=== PATIENT | female | born 1955 | race Two or more races ===

== ENCOUNTER 2024-05-29 18:05 | Emergency (ER) | payer MEDICARE, MEDICAID, SELFPAY ==
[2024-05-29 18:21] VITALS: BP 130/82; PULSE 88; RESP 17; TEMP 36.9; O2SAT 95; BMI 29.1
--- NOTE | 2024-05-29 18:31 | EDRME_ITS ---
Rapid Medical Screening Exam E Arrival date/time: 05/29/24 18:05 69-year-old female with past medical history of pulmonary fibrosis presents emergency department complaining of cough and increased shortness of breath for over 1 week. Patient reports was recently diagnosed with pneumonia but symptoms have worse terri. Chief Complaint: Shortness of Breath/Dyspnea Time Seen by Provider: 05/29/24 18:21 Vital signs: Vital Signs Temperature 98.4 F 05/29/24 18:21 Pulse Rate 88 05/29/24 18:21 Respiratory Rate 17 05/29/24 18:21 Blood Pressure 130/82 05/29/24 18:21 Pulse Oximetry (%) 95 05/29/24 18:21 Oxygen Delivery Method Room Air 05/29/24 18:21 Vital signs reviewed by provider: Yes
--- NOTE | 2024-05-29 18:32 | EKG_ITS ---
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
--- NOTE | 2024-05-29 18:32 | XR_ITS ---
Examination: PA lateral chest 2 views Technique: Upright PA lateral chest 2 views Exam date and time: May 29, 2024 1841 hrs. Comparison February 08, 2024 Indications: Chest pain today. Findings: Widespread interstitial disease throughout the lungs Normal heart size Moderate osteopenia Impression: Widespread interstitial disease throughout the lungs most consistent with pneumonia
[2024-05-29 19:06] LABS: Basophils % (Auto) 0 % (0-2.5); Eosinophils % (Auto) 0 % (0-10); Hematocrit 35.7 % (36.0-46.0); Hemoglobin 12.5 g/dL (12.0-16.0); Immature Granulocytes % (Auto) 0 % (0-0); Immature Granulocytes Auto 0.03 Thou/mm3 (0.00-0.00); Lymphocytes # (Auto) 2.4 Thou/mm3 (1.0-4.8); Lymphocytes % (Auto) 32 % (10-50); Mean Corpuscular Hemoglobin 31.1 pg (25.0-35.0); Mean Corpuscular Volume 89 fL (80-100); Monocytes # (Auto) 0.8 Thou/mm3 (0.0-0.8); Monocytes % (Auto) 11 % (0-12); Neutrophils # (Auto) 4.2 Thou/mm3 (1.8-7.7); Neutrophils % (Auto) 56 % (37-80); Nucleated Red Blood Cell % 0 /100 WBC (0); Platelet Count 240 Thou/mm3 (140-440); RDW Standard Deviation 42.8 fL (36.4-46.3); Red Blood Count 4.02 Miln/mm3 (4.00-5.20); White Blood Count 7.6 Thou/mm3 (3.6-11.0)
[2024-05-29 19:21] LABS: B-Type Natriuretic Peptide 32 pg/mL (0-100); INR 0.9 (0.9-1.3); Partial Thromboplastin Time 27.3 Seconds (22.0-36.0); Prothrombin Time 10.3 Seconds (9.0-12.2)
[2024-05-29 19:26] LABS: Alanine Aminotransferase 33 U/L (10-49); Albumin, Serum 4.3 gm/dL (3.4-4.8); Albumin/Globulin Ratio 1.7 (1.2-2.2); Alkaline Phosphatase 95 U/L (46-116); Anion Gap 6 (7-16); Aspartate Amino Transferase 45 U/L (0-34); BUN/Creatinine Ratio 14 Ratio (12-20); Bilirubin,Total 0.5 mg/dL (0.3-1.2); Blood Urea Nitrogen 10 mg/dL (9-23); Calcium 9.7 mg/dL (8.3-10.6); Calcium (Corrected) 9.7 mg/dL (8.5-10.1); Chloride 89 mMol/L (98-107); Creatinine (Component) 0.7 mg/dL (0.6-1.3); Estimated Creatinine Clearance 63.3 mL/min (>60); Globulin 2.5 gm/dL (2.3-3.5); Glucose 98 mg/dL (74-106); Osmolality,Calculated 241 (275-295); Potassium 4.5 mMol/L (3.4-5.1); Sodium 120 mMol/L (136-145); Total Protein 6.8 gm/dL (5.7-8.2); Troponin I < 0.020 ng/mL (0.0-0.045); eGFR > 60 See Note
[2024-05-29 19:36] LABS: Strep A Rapid Negative (Negative)
[2024-05-29 19:52] VITALS: BP 148/79; PULSE 73; RESP 17; TEMP 36.6; O2SAT 95
[2024-05-29 20:08] VITALS: TEMP 37.9
--- NOTE | 2024-05-29 20:30 | EDNOTE_ITS ---
ED General RME/HPI General Chief complaint: Shortness of Breath/Dyspnea Stated complaint: SOB Time Seen by Provider: 05/29/24 18:21 Arrival date/time: 05/29/24 18:05 CC: Cough HPI patient presents the ER after being referred over by the PCP for pneumonia . Patient has extensive history of pulmonary fibrosis, which the patient's family emergency were aware of. There is no fever, the patient has not endured any shortness of breath. During the visit the emergency room vital signs of all remained stable including oxygen saturations greater than 94% on room air. Patient received 3 days continuous of IM Rocephin injections without significant improvement by the PCP including oral cough medicine, and an inhaler. RME / HPI RME / HPI narrative: 05/29/24 18:05 69-year-old female with past medical history of pulmonary fibrosis presents emergency department complaining of cough and increased shortness of breath for over 1 week. Patient reports was recently diagnosed with pneumonia but symptoms have worsened. Related Data Home Medications ?Medication ?Instructions ?Recorded ?Confirmed fluticasone propionate 50 1 spray intranasal QDAY 09/16/22 05/29/24 mcg/actuation nasal spray,suspension Previous Rx's ?Medication ?Instructions ?Recorded dicyclomine 20 mg tablet 20 mg PO TID PRN abdominal pain 07/03/23 #20 tabs prednisone 20 mg tablet See Taper PO BID 3 days #6 tabs 05/29/24 Allergies Allergy/AdvReac Type Severity Reaction Status Date / Time codeine Allergy Intermediate Nausea Verified 04/29/23 17:22 hydrocodone Allergy Intermediate GI UPSET Verified 04/29/23 17:22 Review of Systems Review of Systems Narrative Review of Systems: GEN: No fever, no chills, no weight loss EYES: No discharge, no visual changes, no pain HEENT: No ear pain, no congestion, no sore throat PULM: No shortness of breath, + cough, no congestion CV: No chest pain, no dyspnea on exertion, no palpitations GI: No nausea, no vomiting, no diarrhea, no pain, no constipation : No frequency, no urgency, no dysuria MUSC/SKEL: No joint pain, no back pain SKIN: No rash PSYCH: No hallucinations, no depression HEME/LYMPH: No easy bleeding or bruising tendencies NEURO: No weakness, no headache Past Medical History Past Medical History NEUROLOGIC: Positive Neurological Disorders and Transient Ischemic Attacks (TIA); Negative Cerebrovascular Accident or Seizures CARDIAC: Negative Cardiac Disorders or Congestive Heart Failure RESPIRATORY: Positive Pneumonia and Pulmonary Fibrosis; Negative Chronic Obstructive Pulmonary Disease (COPD), Asthma, Emphysema or Tuberculosis GASTROINTESTINAL: Negative Gastrointestinal Disorders GENITOURINARY: Negative Genitourinary Disorders or Renal Disease REPRODUCTIVE: Negative Pelvic Inflammatory Disease MUSCULOSKELETAL: Positive Musculoskeletal Disorders and Arthritis ENDOCRINE: Negative Endocrine Disorders, Diabetes Mellitus Type 1 or Diabetes Mellitus Type 2 HEMATOLOGIC: Negative Blood Disorders or Sickle Cell Disease PSYCHO/SOCIAL: Positive Anxiety; Negative Depression OTHER HISTORY: Negative Autoimmune Disease, Blood Transfusions, Anesthesia Reactions, Organ Transplant or Cancer Surgical History SURGICAL: Positive Oral Surgery and Abdominal Surgery; Negative Cardiac Surgery or Organ Transplant Social History SMOKING STATUS: Never smoker SUBSTANCE USE: does not use ED Exam Narrative Physical exam: [General: Not in any acute distress Head normocephalic HEENT: Within acceptable limits Neck is supple nontender Chest equal chest rise nontender to palpation Respiratory: Clear to auscultation no wheezes crackles or rubs CV: Rate rhythm is regular no murmurs rubs or clicks Abdomen is soft nontender no masses positive bowel sounds all 4 quadrants Back: No CVA tenderness no spinous process tenderness from cervical spine thoracic and lumbar spine Skin: Intact no petechiae rash induration ulceration or crepitus Extremities: Moving all extremity against resistance cap refill less than 2 seconds neurosensory intact Neuro: Awake alert oriented x3 Glascow coma 15 no focal deficits] Course Quality Measures none Orders Category Date Time Status Bedside Influenza A&B Antigen Test NOW Care 05/29/24 18:32 Completed EKG (ED ONLY) *Do not use* NOW Care 05/29/24 18:32 Completed EKG (ED Only) Stat Exams 05/29/24 18:32 Draft XR chest 2V Stat Exams 05/29/24 18:32 Completed BNP [B-Type Natriuretic Peptide] Stat Lab 05/29/24 18:46 Completed CBC Stat Lab 05/29/24 18:46 Completed Comprehensive Metabolic Panel Stat Lab 05/29/24 18:46 Completed PT [Prothrombin Time with INR] Stat Lab 05/29/24 18:46 Completed PTT [Partial Thromboplastin Time] Stat Lab 05/29/24 18:46 Completed Strep A Rapid Stat Lab 05/29/24 19:00 Completed Troponin I Stat Lab 05/29/24 18:46 Completed Vital Signs Vital signs: Vital Signs Temperature 98.4 F 05/29/24 18:21 Pulse Rate 88 05/29/24 18:21 Respiratory Rate 17 05/29/24 18:21 Blood Pressure 130/82 05/29/24 18:21 Pulse Oximetry (%) 95 05/29/24 18:21 Oxygen Delivery Method Room Air 05/29/24 18:21 [facility] Patient data External records reviewed:: [facility] previous records Clinical information provided by:: patient and family Social determinants that could affect healthcare access:: none Patient has the following chronic illnesses:: Pulmonary fibrosis TIA How is presenting disease/condition affected by chronic disease/condition?: e xacerbated by Evaluation data The following diagnostics were reviewed and interpreted by me:: lab results, radiology exam(s) and EKG tracing(s) Lab and/or radiology exams considered but not ordered:: CBC shows no acute leukocytosis anemia thrombocytopenia. Coags within acceptable limits CMP shows a sodium 120 potassium of 4.5 chloride of 120 CO2 of 25.0 BUN of 10 creatinine of 2.7 glucose of 98. No transaminitis or T. bili elevation Troponin is negative BNP is negative Strep is negative Chest x-ray interpreted by me shows pulmonary fibrosis there is a question of infiltrate per the radiologist however when compared to the old EKGs for the last 3 images show that all is consistent with pulmonary fibrosis. No focal consolidated infiltrate. Interpretation Summary: The patient has no pneumonic signs such as tachypnea tachycardia fever or productive wet cough shortness of breath difficulty breathing. X-ray is subjective as the patient has significant pulmonary fibrosis, the patient is comfortable with normal oxygen saturations and stable vital signs at this time I am not overly impressed that this is an pneumonia. The patient received 3 days of Rocephin injections without significant improvement I suspect this is pulmonary fibrosis with may be an inflammatory flare. Patient will be put on steroids at home the daughter was advised to watch the patient for 2 days if there is worsening of symptoms return the emergency room otherwise follow-up with her primary care provider. Medications Medications considered but not ordered:: None Medication administrations:: None Consultations Consultation(s) initiated? (list below): No Diagnosis Differential Diagnosis ED Complaint MDM: Pneumonia sepsis pulmonary fibrosis Most likely diagnosis given after review of the tests above:: Pulmonary fibrosis cough Admission Indicated Admission indicated?: not indicated Explain why admission is indicated or not indicated:: Stable for outpatient follow-up Admission Request Was there a request for admission?: No Disposition Plan Disposition Plan: Discharge Discharge Attestation Discharge Attestation: The patient and all family members were given an opportunity to ask questions and understood the discharge instructions. Discharge instructions specifically effects, indications for sooner follow up or return to the emergency department, and the expected course of current diagnosis. Patient condition: Stable Medical Decision Making Differential Diagnosis Differential Diagnosis: Pneumonia sepsis pulmonary fibrosis Lab Data 05/29/24 18:46 05/29/24 18:46 Labs: Lab Results 05/29/24 05/29/24 Range/Units 18:46 19:00 WBC 7.6 (3.6-11.0) Thou/mm3 RBC 4.02 (4.00-5.20) Miln/mm3 Hgb 12.5 (12.0-16.0) g/dL Hct 35.7 L (36.0-46.0) % MCV 89 (80-100) fL MCH 31.1 (25.0-35.0) pg MCHC 35.0 (31.0-37.0) g/dl RDW Std Deviation 42.8 (36.4-46.3) fL Plt Count 240 (140-440) Thou/mm3 Neut % (Auto) 56 (37-80) % Lymph % (Auto) 32 (10-50) % [place] % (Auto) 11 (0-12) % Eos % (Auto) 0 (0-10) % Baso % (Auto) 0 (0-2.5) % Neut # (Auto) 4.2 (1.8-7.7) Thou/mm3 Lymph # (Auto) 2.4 (1.0-4.8) Thou/mm3 [place] # (Auto) 0.8 (0.0-0.8) Thou/mm3 Eos # (Auto) 0.0 (0.0-0.5) Thou/mm3 Baso # (Auto) 0.0 (0.0-0.2) Thou/mm3 Immature Gran # (Auto) 0.03 H (0.00-0.00) Thou/mm3 Absolute Nucleated RBC 0.00 (0.00-0.00) Thou/mm3 Immature Gran % 0 (0-0) % Nucleated RBC % 0 (0) /100 WBC PT 10.3 (9.0-12.2) Seconds INR 0.9 (0.9-1.3) APTT 27.3 (22.0-36.0) Seconds Sodium 120 L (136-145) mMol/L Potassium 4.5 (3.4-5.1) mMol/L Chloride 89 L (98-107) mMol/L Carbon Dioxide 25.0 (20.0-31.0) mMol/L Anion Gap 6 L (7-16) BUN 10 (9-23) mg/dL Creatinine 0.7 (0.6-1.3) mg/dL Estim Creat Clear Calc 63.3 (>60) mL/min eGFR > 60 (60 - ) See Note BUN/Creatinine Ratio 14 (12-20) Ratio Glucose 98 (74-106) mg/dL Calculated Osmolality 241 L (275-295) Calcium 9.7 (8.3-10.6) mg/dL Corrected Calcium 9.7 (8.5-10.1) mg/dL Total Bilirubin 0.5 (0.3-1.2) mg/dL AST 45 H (0-34) U/L ALT 33 (10-49) U/L Alkaline Phosphatase 95 (46-116) U/L Troponin I < 0.020 (0.0-0.045) ng/mL B-Natriuretic Peptide 32 (0-100) pg/mL Total Protein 6.8 (5.7-8.2) gm/dL Albumin 4.3 (3.4-4.8) gm/dL Globulin 2.5 (2.3-3.5) gm/dL Albumin/Globulin Ratio 1.7 (1.2-2.2) Group A Strep Rapid Negative (Negative) Discharge Plan Plan Patient Disposition: HOME (Self Care) Patient condition on transfer: Stable Prescriptions/Referrals Prescriptions/Med Rec: New prednisone 20 mg tablet See Taper PO BID 3 Days Qty: 6 0RF Taper: Prednisone Taper 20 mg DAILY for 2 Days and 0 Hour 10 mg DAILY for 2 Days and 0 Hour 5 mg DAILY for 7 Days and 0 Hour No Action dicyclomine 20 mg tablet 20 mg PO TID PRN (Reason: abdominal pain) Qty: 20 0RF fluticasone propionate 50 mcg/actuation [place],Suspension 1 spray INTRANASAL QDAY Rx Instructions: administer into each nostril Problem List Clinical Impression: Cough Patient/Caregiver Discharge Instructions Education Materials: ED Cough Chronic Uncertain Cause Adult Print Language: Ivorian Stand Alone Forms: [facility]quel Award Info., Patient Portal Info Letter PA/CERTIFIED ALCOHOL COUNSELOR Supervising Physician PA/CERTIFIED ALCOHOL COUNSELOR Supervising Physician: Yonis Ochoa ENP
[2024-05-29 20:42] VITALS: BP 144/80; PULSE 75; RESP 20; O2SAT 94
== END 2024-05-29 20:56 | disposition home or self-care (01) ==
LOC: SERX 20:43
PROVIDERS: Emergency Provider Emergency Medicine; PCP Registered Nurse Community Health
DX: R05.9 Cough, unspecified (principal); J84.10 Pulmonary fibrosis, unspecified
CPT/HCPCS: 36415; 71046; 80053; 83880; 84484; 85025; 85610; 85730; 87400; 87651; 87811; 93005; 99283

== ENCOUNTER → 2024-08-01 | Outpatient (CLI) | payer MEDICARE, MEDICAID, SELFPAY ==
--- NOTE | 2024-08-01 14:45 | XR_ITS ---
Examination: Bone densitometry Date and time of exam:August 01, 2024 1452 hrs. Indications: Menopause age 36 Technique: Lumbar spine and hip total bone mineralization values of an calculated. Peak reference and age match control results have been displayed. Findings: Lumbar spine total bone mineralization is1.198 gm/cm2. This is 1.4 standard deviations above peak reference. This is 3.6 standard deviations above age-matched controls. Hip total bone mineralization is 0.835 gm/cm2 This is 0.9 standard deviations below peak reference. This is 0.6 standard deviations above age-matched controls Impression: There is normal mineralization based on lumbar spine measurements. There is osteopenia based on hip measurements Lumbar mineralization is increased 1.2% compared with January 22 2021 Hip mineralization is decreased 1.9% compared with the January 22 2021
== END | disposition home or self-care (01) ==
LOC: CDIM 14:23
PROVIDERS: Referring Provider Registered Nurse Community Health; Visit Provider Registered Nurse Community Health
DX: Z13.820 Encounter for screening for osteoporosis (principal); M85.88 Other specified disorders of bone density and structure, other site
CPT/HCPCS: 77080

== ENCOUNTER 2024-10-09 13:40 | Emergency (ER) | payer MEDICARE, MEDICAID, SELFPAY ==
[2024-10-09 13:41] VITALS: BMI 29.9
[2024-10-09 13:45] VITALS: BP 121/70; PULSE 73; RESP 20; TEMP 36.6; O2SAT 96
--- NOTE | 2024-10-09 14:04 | XR_ITS ---
Examination: Duplex scan of the lower extremity, unilateral right complete Date and time of exam: October 09, 2024 1520 hours INDICATIONS: Right leg numbness today Technique: Duplex scan of the extremity veins using B-mode/grayscale imaging and Doppler spectral analysis and color flow Attention is directed to internal echogenicity, compression and augmentation involving these veins, color flow assessment, spectral analysis Findings: Major deep venous structures in the extremity demonstrate normal course and caliber. There is no evidence of deep vein thrombosis. Normal color flow and spectral analysis Impression: Negative for DVT..
--- NOTE | 2024-10-09 14:05 | PD.EDRME ---
Rapid Medical Screening Exam RME Arrival date/time: 10/09/24 13:40 69-year-old female with no known medical history presents to the emergency room with a chief complaint of numbness to the right lower extremity x 3 days I have greeted and performed a focused initial assessment of this patient. A comprehensive ED assessment and evaluation of the patient, analysis of all test results, and completion of the medical decision making process will be conducted by additional ED providers. Chief Complaint: Extremity Injury, Lower Time Seen by Provider: 10/09/24 13:51 Vital signs: Vital Signs Temperature 97.9 F 10/09/24 13:45 Pulse Rate 73 10/09/24 13:45 Respiratory Rate 20 10/09/24 13:45 Blood Pressure 121/70 10/09/24 13:45 Pulse Oximetry (%) 96 10/09/24 13:45 Oxygen Delivery Method Room Air 10/09/24 13:45 Vital signs reviewed by provider: Yes
[2024-10-09 14:23] LABS: Basophils % (Auto) 0 % (0-2.5); Eosinophils # (Auto) 0.1 Thou/mm3 (0.0-0.5); Eosinophils % (Auto) 1 % (0-10); Hematocrit 35.3 % (36.0-46.0); Hemoglobin 12.1 g/dL (12.0-16.0); Immature Granulocytes % (Auto) 1 % (0-0); Immature Granulocytes Auto 0.05 Thou/mm3 (0.00-0.00); Lymphocytes # (Auto) 2.2 Thou/mm3 (1.0-4.8); Lymphocytes % (Auto) 27 % (10-50); Mean Corpuscular HGB Conc 34.3 g/dl (31.0-37.0); Mean Corpuscular Hemoglobin 30.9 pg (25.0-35.0); Mean Corpuscular Volume 90 fL (80-100); Monocytes # (Auto) 0.7 Thou/mm3 (0.0-0.8); Monocytes % (Auto) 8 % (0-12); Neutrophils # (Auto) 5.3 Thou/mm3 (1.8-7.7); Neutrophils % (Auto) 63 % (37-80); Nucleated Red Blood Cell % 0 /100 WBC (0); Platelet Count 223 Thou/mm3 (140-440); RDW Standard Deviation 45.6 fL (36.4-46.3); Red Blood Count 3.92 Miln/mm3 (4.00-5.20); White Blood Count 8.3 Thou/mm3 (3.6-11.0)
[2024-10-09 14:40] LABS: Collection Type, Urine Clean Catch
[2024-10-09 14:41] LABS: Alanine Aminotransferase 22 U/L (10-49); Albumin/Globulin Ratio 1.8 (1.2-2.2); Alkaline Phosphatase 69 U/L (46-116); Anion Gap 7 (7-16); Aspartate Amino Transferase 21 U/L (0-34); BUN/Creatinine Ratio 20 Ratio (12-20); Bilirubin,Total 0.3 mg/dL (0.3-1.2); Blood Urea Nitrogen 20 mg/dL (9-23); Carbon Dioxide 23.8 mMol/L (20.0-31.0); Chloride 96 mMol/L (98-107); Estimated Creatinine Clearance 44.9 mL/min (>60); Globulin 2.2 gm/dL (2.3-3.5); Glucose 93 mg/dL (74-106); Osmolality,Calculated 257 (275-295); Potassium 4.3 mMol/L (3.4-5.1); Sodium 127 mMol/L (136-145); Total Protein 6.2 gm/dL (5.7-8.2); eGFR > 60 See Note
[2024-10-09 14:45] LABS: Bilirubin,Urine Negative (Negative); Blood,Urine Negative (Negative); Clarity,Urine Clear (Clear/Hazy); Color,Urine Yellow (Lt Yel-Yel); Culture Indicated,Urine Not Indicated; Glucose, Urine Negative (Negative); Hyaline Casts,Urine < 1 /hpf (0-1); Ketones,Urine Negative (Negative); Leukocyte Esterase,Urine Positive (Negative); Nitrite,Urine Negative (Negative); PH,Urine 6.5 (5.0-7.0); Protein,Urine Negative (Neg - Trace); RBC,Urine 2 /hpf (0-3); Specific Gravity,Urine 1.021 (1.001-1.035); Squamous Epithelial Cell,Urine 2 /hpf (0-5); Urobilinogen,Urine Negative mg/dL (0.0-1.0); WBC,Urine 2 /hpf (0-5)
[2024-10-09 15:09] LABS: INR 0.9 (0.9-1.3); Partial Thromboplastin Time 22.8 Seconds (22.0-36.0); Prothrombin Time 10.1 Seconds (9.0-12.2)
[2024-10-09 17:10] VITALS: BP 139/78; PULSE 61; RESP 17; TEMP 36.5; O2SAT 97
--- NOTE | 2024-10-09 20:52 | EDNOTE_ITS ---
ED General RME/HPI General Chief complaint: Extremity Injury, Lower Stated complaint: MY R LEGS FEELS ASLEEP X1 DAY Time Seen by Provider: 10/09/24 13:51 Arrival date/time: 10/09/24 13:40 CC: Right lower leg numbness HPI onset Wednesday morning when she woke up however cannot say whether it was there Wednesday night. No prior history of similar events isolated to the right lower leg only. Patient send since then it has started to resolve. Patient denies fever chills numbness weakness in any other extremities balance issue blurred vision seeing spots headache or numbness or weakness in the upper extremities. RME / HPI RME / HPI narrative: 10/09/24 13:40 69-year-old female with no known medical history presents to the emergency room with a chief complaint of numbness to the right lower extremity x 3 days I have greeted and performed a focused initial assessment of this patient. A comprehensive ED assessment and evaluation of the patient, analysis of all test results, and completion of the medical decision making process will be conducted by additional ED providers. Related Data Home Medications ?Medication ?Instructions ?Recorded ?Confirmed fluticasone propionate 50 1 spray intranasal QDAY 08/2305/29/24 mcg/actuation nasal spray,suspension Previous Rx's ?Medication ?Instructions ?Recorded dicyclomine 20 mg tablet 20 mg PO TID PRN abdominal p ain 07/03/23 #20 tabs Allergies Allergy/AdvReac Type Severity Reaction Status Date / Time codeine Allergy Intermediate Nausea Verified 10/09/24 13:44 hydrocodone Allergy Intermediate GI UPSET Verified 10/09/24 13:44 Review of Systems Review of Systems Narrative Review of Systems: GEN: No fever, no chills, no weight loss EYES: No discharge, no visual changes, no pain HEENT: No ear pain, no congestion, no sore throat PULM: No shortness of breath, no cough, no congestion CV: No chest pain, no dyspnea on exertion, no palpitations GI: No nausea, no vomiting, no diarrhea, no pain, no constipation : No frequency, no urgency, no dysuria MUSC/SKEL: No joint pain, no back pain SKIN: No rash PSYCH: No hallucinations, no depression HEME/LYMPH: No easy bleeding or bruising tendencies NEURO: No weakness, no headache Past Medical History Past Medical History NEUROLOGIC: Positive Neurological Disorders and Transient Ischemic Attacks (TIA); Negative Cerebrovascular Accident or Seizures CARDIAC: Negative Cardiac Disorders or Congestive Heart Failure RESPIRATORY: Positive Pneumonia and Pulmonary Fibrosis; Negative Chronic Obstructive Pulmonary Disease (COPD), Asthma, Emphysema or Tuberculosis GASTROINTESTINAL: Negative Gastrointestinal Disorders GENITOURINARY: Negative Genitourinary Disorders or Renal Disease REPRODUCTIVE: Negative Pelvic Inflammatory Disease MUSCULOSKELETAL: Positive Musculoskeletal Disorders and Arthritis ENDOCRINE: Negative Endocrine Disorders, Diabetes Mellitus Type 1 or Diabetes Mellitus Type 2 HEMATOLOGIC: Negative Blood Disorders or Sickle Cell Disease PSYCHO/SOCIAL: Positive Anxiety; Negative Depression OTHER HISTORY: Negative Autoimmune Disease, Blood Transfusions, Anesthesia Reactions, Organ Transplant or Cancer Surgical History SURGICAL: Positive Oral Surgery and Abdominal Surgery; Negative Cardiac Surgery or Organ Transplant Social History SMOKING STATUS: Never smoker SUBSTANCE USE: does not use ED Exam Narrative Physical exam: [General: Obese not in any acute distress Head normocephalic HEENT: Within acceptable limits Neck is supple nontender Chest equal chest rise nontender to palpation Respiratory: Clear to auscultation no wheezes crackles or rubs CV: Rate rhythm is regular no murmurs rubs or clicks Abdomen is distended secondary to body habitus soft nontender no masses positive bowel sounds all 4 quadrants Back: No CVA tenderness no spinous process tenderness from cervical spine thoracic and lumbar spine Skin: Intact no petechiae rash induration ulceration or crepitus Extremities: Moving right lower extremity against resistance cap refill less than 2 seconds. Sensory intact. No edema nontender to palpation. Moving all other extremities against resistance cap refill less than 2 seconds neurosensory intact Neuro: Awake alert oriented x3 Glascow coma 15 no focal deficits] Course Course Course Narrative: Patient has resolution of symptoms as no generalized weaknesses and no other focal deficits at this time I have low index of suspicion that this is a stroke, we will discharge the patient home to follow-up with primary care provider. Quality Measures none Orders Category Date Time Status US venous doppler LE RT Stat Exams 10/09/24 14:04 Completed CBC Stat Lab 10/09/24 14:09 Completed CMP [Comprehensive Metabolic Panel] Stat Lab 10/09/24 14:09 Completed PT [Prothrombin Time with INR] Stat Lab 10/09/24 14:09 Completed PTT [Partial Thromboplastin Time] Stat Lab 10/09/24 14:09 Completed UA, C/S IF [Urinalysis, C/S if Indicated] Stat Lab 10/09/24 14:31 Completed Vital Signs Vital signs: Vital Signs Temperature 97.9 F 10/09/24 13:45 Pulse Rate 73 10/09/24 13:45 Respiratory Rate 20 10/09/24 13:45 Blood Pressure 121/70 10/09/24 13:45 Pulse Oximetry (%) 96 10/09/24 13:45 Oxygen Delivery Method Room Air 10/09/24 13:45 Discharge Plan Plan Patient Disposition: HOME (Self Care) Patient condition on transfer: Stable Prescriptions/Referrals Prescriptions/Med Rec: No Action dicyclomine 20 mg tablet 20 mg PO TID PRN (Reason: abdominal pain) Qty: 20 0RF fluticasone propionate 50 mcg/actuation [place],Suspension 1 spray INTRANASAL QDAY Rx Instructions: administer into each nostril Referrals: Eileen Zelaya, PASTE MIXING SUPERVISOR [Primary Care Provider] - In 1 week Problem List Clinical Impression: Lower extremity numbness Patient/Caregiver Discharge Instructions Education Materials: ED Paraesthesias Print Language: Sammarinese Stand Alone Forms: [facility]quel Award Info., Patient Portal Info Letter PA/PASTE MIXING SUPERVISOR Supervising Physician PA/PASTE MIXING SUPERVISOR Supervising Physician: Yonis Ochoa ENP [facility] Clinical Information Provided by: patient and family Medical Records reviewed [facility] Meds/Rx considered, not ordered None Labs/Rad/Tests considered, not ordered None EKG EKG not done Labs Lab(s) Interpretation(s): CBC shows no acute leukocytosis significant anemia, platelets of 223 Coags within acceptable limits Sodium is low at 127 chloride at 96 no other electrolyte imbalances no renal impairment transaminitis or T. bili elevation. Note: Her sodium has been as low as 120. Patient is aware Urine is negative for acute urinary tract infection. Imaging Imaging interpretation: interpreted by [facility] Interpretation(s): Ultrasound right lower extremity is negative for DVT
[2024-10-09 21:04] VITALS: RESP 16
== END 2024-10-09 21:05 | disposition home or self-care (01) ==
PROVIDERS: Nurse Practitioner Family; Emergency Provider Emergency Medicine; PCP Registered Nurse Community Health
DX: R20.0 Anesthesia of skin (principal)
CPT/HCPCS: 36415; 80053; 81001; 85025; 85610; 85730; 93971; 99284

== ENCOUNTER 2024-10-23 19:54 | Emergency (ER) | payer MEDICARE, MEDICAID, SELFPAY ==
--- NOTE | 2024-10-23 19:57 | EKG_ITS ---
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
[2024-10-23 20:09] VITALS: BP 170/69; PULSE 77; RESP 20; TEMP 36.4; O2SAT 94
--- NOTE | 2024-10-23 21:01 | PD.EDRME ---
Rapid Medical Screening Exam RME Arrival date/time: 10/23/24 19:54 Chief Complaint: Shortness of Breath/Dyspnea Time Seen by Provider: 10/23/24 20:47 Vital signs: Vital Signs Temperature 97.5 F 10/23/24 20:09 Pulse Rate 77 10/23/24 20:09 Respiratory Rate 20 10/23/24 20:09 Blood Pressure 170/69 H 10/23/24 20:09 Pulse Oximetry (%) 94 L 10/23/24 20:09 Oxygen Delivery Method Room Air 10/23/24 20:09 Pulse ox is 94% room air. Vital signs reviewed by provider: Yes RME Narrative: Patient is a 69-year-old woman who has pulmonary fibrosis with difficulty breathing and chest pain as well as chest pressure that has been intermittent for the last 2 years.
--- NOTE | 2024-10-23 21:06 | XR_ITS ---
Examination: PA lateral chest 2 views TECHNIQUE: Upright PA lateral chest 2 views Date and time: October 23, 2024 2147 hours Comparison May 29, 2024 INDICATIONS: Shortness of breath today. FINDINGS: Again noted abnormal interstitial disease throughout the lungs, please see the CT chest report 02/12/2023 indicating mild to moderate pulmonary fibrosis No bobby pneumonia Normal heart size Moderate osteopenia IMPRESSION: Moderate bilateral pulmonary fibrosis
[2024-10-23 22:15] LABS: Basophils % (Auto) 0 % (0-2.5); Eosinophils % (Auto) 0 % (0-10); Hematocrit 33.7 % (36.0-46.0); Hemoglobin 12.3 g/dL (12.0-16.0); Immature Granulocytes % (Auto) 0 % (0-0); Immature Granulocytes Auto 0.02 Thou/mm3 (0.00-0.00); Lymphocytes # (Auto) 1.4 Thou/mm3 (1.0-4.8); Lymphocytes % (Auto) 18 % (10-50); Mean Corpuscular HGB Conc 36.5 g/dl (31.0-37.0); Mean Corpuscular Hemoglobin 31.1 pg (25.0-35.0); Mean Corpuscular Volume 85 fL (80-100); Monocytes # (Auto) 0.2 Thou/mm3 (0.0-0.8); Monocytes % (Auto) 3 % (0-12); Neutrophils % (Auto) 78 % (37-80); Nucleated Red Blood Cell % 0 /100 WBC (0); Platelet Count 305 Thou/mm3 (140-440); RDW Standard Deviation 42.2 fL (36.4-46.3); Red Blood Count 3.96 Miln/mm3 (4.00-5.20); White Blood Count 7.6 Thou/mm3 (3.6-11.0)
[2024-10-23 22:33] LABS: B-Type Natriuretic Peptide 47 pg/mL (0-100)
[2024-10-23 22:36] LABS: Alanine Aminotransferase 31 U/L (10-49); Albumin, Serum 4.3 gm/dL (3.4-4.8); Alkaline Phosphatase 79 U/L (46-116); Anion Gap 9 (7-16); Aspartate Amino Transferase 40 U/L (0-34); BUN/Creatinine Ratio 21 Ratio (12-20); Bilirubin,Total 0.5 mg/dL (0.3-1.2); Blood Urea Nitrogen 17 mg/dL (9-23); Calcium 8.7 mg/dL (8.3-10.6); Calcium (Corrected) 8.7 mg/dL (8.5-10.1); Carbon Dioxide 23.5 mMol/L (20.0-31.0); Chloride 92 mMol/L (98-107); Creatinine (Component) 0.8 mg/dL (0.6-1.3); Globulin 2.2 gm/dL (2.3-3.5); Glucose 165 mg/dL (74-106); Osmolality,Calculated 255 (275-295); Potassium 4.1 mMol/L (3.4-5.1); Sodium 124 mMol/L (136-145); Total Protein 6.5 gm/dL (5.7-8.2); Troponin I < 0.002 ng/mL (0.0-0.045); eGFR > 60 See Note
--- NOTE | 2024-10-24 00:28 | PD.EDSOB ---
ED SOB =RME/HPI General Chief Complaint: Shortness of Breath/Dyspnea Stated Complaint: DIFF BREATHING,COUGH Time Seen by Provider: 10/23/24 20:47 Arrival date/time: 10/23/24 19:54 RME / HPI RME / HPI Narrative: Patient is a 69-year-old woman who has pulmonary fibrosis with difficulty breathing and chest pain as well as chest pressure that has been intermittent for the last 2 years. --------- Dr. Winn?s Main ED Evaluation: 69yo female with a history of pulmonary fibrosis BIB her daughter presents to the ED for a chief complaint of chest pain x today. Daughter states the patient has had a cough and sore throat for the last 1 week, reporting she developed chest pain and worsening chronic shortness of breath today. Patient denies any N/V, sweating or any other associated symptoms. Related Data Home Medications ?Medication ?Instructions ?Recorded ?Confirmed fluticasone propionate 50 1 spray intranasal QDAY 09/16/22 05/29/24 mcg/actuation nasal spray,suspension Previous Rx's ?Medication ?Instructions ?Recorded dicyclomine 20 mg tablet 20 mg PO TID PRN abdominal pain 07/03/23 #20 tabs Allergies Allergy/AdvReac Type Severity Reaction Status Date / Time codeine Allergy Intermediate Nausea Verified 10/09/24 13:44 hydrocodone Allergy Intermediate GI UPSET Verified 10/09/24 13:44 Review of Systems Review of Systems Systems Reviewed: All systems reviewed, normal except as documented Past Medical History Past Medical History NEUROLOGIC: Positive Neurological Disorders and Transient Ischemic Attacks (TIA); Negative Cerebrovascular Accident or Seizures CARDIAC: Negative Cardiac Disorders or Congestive Heart Failure RESPIRATORY: Positive Pneumonia and Pulmonary Fibrosis; Negative Chronic Obstructive Pulmonary Disease (COPD), Asthma, Emphysema or Tuberculosis GASTROINTESTINAL: Negative Gastrointestinal Disorders GENITOURINARY: Negative Genitourinary Disorders or Renal Disease REPRODUCTIVE: Negative Pelvic Inflammatory Disease MUSCULOSKELETAL: Positive Musculoskeletal Disorders and Arthritis ENDOCRINE: Negative Endocrine Disorders, Diabetes Mellitus Type 1 or Diabetes Mellitus Type 2 HEMATOLOGIC: Negative Blood Disorders or Sickle Cell Disease PSYCHO/SOCIAL: Positive Anxiety; Negative Depression OTHER HISTORY: Negative Autoimmune Disease, Blood Transfusions, Anesthesia Reactions, Organ Transplant or Cancer Surgical History SURGICAL: Positive Oral Surgery and Abdominal Surgery; Negative Cardiac Surgery or Organ Transplant Social History SMOKING STATUS: Never smoker SUBSTANCE USE: does not use ED Exam Narrative Physical exam: GENERAL APPEARANCE: alert and oriented x 4, mild active cough, well-developed, well-nourished, no acute distress VITALS: All vitals were reviewed and the pulse ox is 94% on room air, which is normal according to my interpretation. HEENT: Normocephalic, atraumatic; pupils equal, round, reactive to light; EOMI; mucous membranes pink, moist; posterior oropharynxgeal injection without exudate NECK: Supple LUNGS: CTABL; no wheezes, no rales, no rhonchi HEART: Regular rate, regular rhythm; normal S1, S2; no murmurs ABDOMEN: non distended; normal BS; soft, no tenderness, no guarding, no rebound; no masses, no organomegaly, no hernia BACK: no CVA tenderness EXTREMITIES: atraumatic; no edema NEUROLOGIC: awake; alert and oriented x4; cranial nerves II-XII grossly intact; no focal sensory or motor deficits PSYCHIATRIC: appropriate mood and affect SKIN: warm, dry, normal color; no rashes Course Course Course Narrative: CXR is ordered for determining the etiology of shortness of breath. Quality Measures none Orders Category Date Time Status EKG (ED ONLY) *Do not use* NOW Care 10/23/24 19:57 Completed CXR2 [XR chest 2V] Stat Exams 10/23/24 21:06 Completed EKG (ED Only) Stat Exams 10/23/24 19:57 Draft BNP [B-Type Natriuretic Peptide] Stat Lab 10/23/24 21:52 Completed CBC Stat Lab 10/23/24 21:52 Completed CMP [Comprehensive Metabolic Panel] Stat Lab 10/23/24 21:52 Completed Troponin I Stat Lab 10/23/24 21:52 Completed Dexamethasone Inj [Decadron Inj] Med 10/24/24 00:40 Discontinued 4 mg PO X1 ONE Vital Signs Vital signs: Vital Signs Temperature 97.5 F 10/23/24 20:09 Pulse Rate 77 10/23/24 20:09 Respiratory Rate 20 10/23/24 20:09 Blood Pressure 170/69 H 10/23/24 20:09 Pulse Oximetry (%) 94 L 10/23/24 20:09 Oxygen Delivery Method Room Air 10/23/24 20:09 Shortness of Breath / Dyspnea MDM Narrative MDM Narrative:: Scribe Attestation: 10/24/24 Yara Kwan am scribing for and in the presence of Dr. Winn. Patient data External records reviewed:: [facility] previous records (Per chart review, patient was seen here on 05/29/24 for a cough.) Clinical information provided by:: patient and family (daughter) Social determinants that could affect healthcare access:: none Patient has the following chronic illnesses:: pulmonary fibrosis How is presenting disease/condition affected by chronic disease/condition?: caused by Evaluation data The following diagnostics were reviewed and interpreted by me:: lab results, radiology exam(s) and EKG tracing(s) Lab and/or radiology exams considered but not ordered:: none Interpretation Summary: CBC normal, Sodium is low at 124, Troponin normal, BNP normal. EKG done at 2004, NSR, rate of 76, normal axis, no ectopy, no acute ischemia, according to my interpretation. [facility] Report Signed Patient: MENDEZ BAPTISTE. Record#: [id number] Birthdate: 1955 Age/Sex: 69 / F Location: [facility] Attending Dr: Ordering Physician: Albert Dawkins PA-C Date of Service: 10/23/24 Procedure(s): XR chest 2V Accession Number(s): [id number] cc: Eileen Zelaya; Bhupendra Franco MD; Albert Dawkins PA-C~ Examination: PA lateral chest 2 views TECHNIQUE: Upright PA lateral chest 2 views Date and time: October 23, 2024 2147 hours Comparison May 29, 2024 INDICATIONS: Shortness of breath today. FINDINGS: Again noted abnormal interstitial disease throughout the lungs, please see the CT chest report 02/12/2023 indicating mild to moderate pulmonary fibrosis No bobby pneumonia Normal heart size Moderate osteopenia IMPRESSION: Moderate bilateral pulmonary fibrosis Dictated By: Bhupendra Franco MD Signed By: <Electronically signed by Bhupendra Franco MD in [place]> 10/23/242202 Medications / Prescriptions Medications or Prescriptions considered but not ordered:: none Medication administrations:: Medication Administration History Discontinued Medications Dexamethasone Sodium Phosphate (Dexamethasone Sod Phos Inj 4 Mg/Ml Vial) 4 mg PO X1 ONE; Protocol Stop: 10/24/24 00:41 see above, if any Consultations Consultation(s) initiated? (list below): No Diagnosis Shortness of Breath Differential Diagnosis: community acquired pneumonia and other (viral URI, Influenza) Most likely diagnosis given after review of the tests above:: see clinical impression below Admission Indicated Admission indicated?: not indicated Admission Request Was there a request for admission?: No Disposition Plan Disposition Plan: Discharge Discharge Attestation Discharge Attestation: The patient and all family members were given an opportunity to ask questions and understood the discharge instructions. Discharge instructions specifically effects, indications for sooner follow up or return to the emergency department, and the expected course of current diagnosis. Patient condition: Stable Discharge Plan Plan Patient Disposition: HOME (Self Care) Discharge Disposition comment: Stable for discharge home Patient condition on transfer: Stable Prescriptions/Referrals Prescriptions/Med Rec: No Action dicyclomine 20 mg tablet 20 mg PO TID PRN (Reason: abdominal pain) Qty: 20 0RF fluticasone propionate 50 mcg/actuation [place],Suspension 1 spray INTRANASAL QDAY Rx Instructions: administer into each nostril Referrals: Eileen Zelaya FNP [Primary Care Provider] - In 1 week Problem List Clinical Impression: Upper respiratory infection, viral Patient/Caregiver Discharge Instructions Discharge Activity: activity as tolerated Education Materials: ED URI, Viral, No Abx (Adult) Additional Instructions: Please return to the emergency department if you have any worsening or any further medical problems and we will help you. Otherwise you should follow-up with your primary care doctor within the next several days. We gave you a medicine called dexamethasone here in the emergency department. This medicine is likely to make your sore throat completely disappear within the next couple of hours. You should use Motrin and Tylenol at home for aches and pains, chills or sweats. Print Language: [place] Stand Alone Forms: [facility] Award Info., Patient Portal Info Letter
[2024-10-24] MEDS: DEXAMETHASONE SOD PHOS INJ 4 MG/ML VIAL PO (00:47)
[2024-10-24 00:56] VITALS: PULSE 67; RESP 16; O2SAT 96
== END 2024-10-24 00:57 | disposition home or self-care (01) ==
PROVIDERS: Physician Assistant; Emergency Provider Emergency Medicine; PCP Registered Nurse Community Health
DX: J06.9 Acute upper respiratory infection, unspecified (principal); J84.10 Pulmonary fibrosis, unspecified
CPT/HCPCS: 36415; 71046; 80053; 83880; 84484; 85025; 93005; 99283; J1100

== ENCOUNTER → 2024-11-14 | Outpatient (CLI) | payer MEDICARE, MEDICAID, SELFPAY ==
--- NOTE | 2024-11-14 14:24 | XR_ITS ---
Examination:Right hip AP, lateral, AP pelvis 3 views Technique: Hip AP lateral, AP pelvis, 3 views Exam date and time:November 14, 2024 1430 hours INDICATIONS: Right knee pain beginning 3 months ago. FINDINGS: Moderate osteopenia Mild bilateral hip osteoarthritis Greater trochanteric bursitis both hips Bones of the pelvis intact IMPRESSION: Mild bilateral hip osteoarthritis Bilateral greater trochanteric bursitis hips.
== END | disposition home or self-care (01) ==
PROVIDERS: PCP Physician Assistant; Referring Provider Physician Assistant; Visit Provider Physician Assistant
DX: M16.0 Bilateral primary osteoarthritis of hip (principal); M70.62 Trochanteric bursitis, left hip; M70.61 Trochanteric bursitis, right hip
CPT/HCPCS: 73502

== ENCOUNTER → 2025-02-08 | Outpatient (CLI) | payer MEDICARE, MEDICAID, SELFPAY ==
--- NOTE | 2025-02-08 | XR_ITS ---
Examination:Left hip AP, lateral, AP pelvis 3 views Technique: Hip AP lateral, AP pelvis, 3 views Exam date and time:February 08, 2025 1240 hours INDICATIONS: Left hip pain one month. FINDINGS: Mild narrowing hip joints Moderate osteopenia. Greater trochanteric bursitis both right and left hips No left or right hip fracture no avascular necrosis IMPRESSION: Mild bilateral hip osteoarthritis.
--- NOTE | 2025-02-08 | XR_ITS ---
Examination: Lumbar spine 3 views Technique one AP lateral coned lateral lower lumbar spine 3 views Date and time: February 08, 2025 1257 hours INDICATIONS: Low back pain radiating down the left leg beginning 2 weeks ago FINDINGS: Lumbar levoscoliosis 22 degrees Grade 1 listhesis L4 on L5 No lumbar fracture Advanced diffuse lumbar degenerative disc disease with spinal stenosis IMPRESSION: Diffuse advanced lumbar degenerative disc disease with spinal stenosis
== END | disposition home or self-care (01) ==
LOC: CDIM 11:36
PROVIDERS: PCP Physician Assistant; Referring Provider Internal Medicine; Visit Provider Internal Medicine
DX: M16.0 Bilateral primary osteoarthritis of hip (principal); M51.360 Other intervertebral disc degeneration, lumbar region with discogenic back pain only; M48.061 Spinal stenosis, lumbar region without neurogenic claudication
CPT/HCPCS: 72100; 73502

== ENCOUNTER 2025-04-13 07:25 | Day surgery (SDC) | payer MEDICARE, MEDICAID, SELFPAY ==
[2025-04-12 12:49] VITALS: BMI 25.9
[2025-04-13] VITALS (13 sets, daily range): BP systolic 113–157; BP diastolic 53–91; PULSE 64–85; RESP 8–25; TEMP 36.3–36.8; O2SAT 95–100; BMI 25.3
[2025-04-13] MEDS: SODIUM CHLORIDE 0.9% 500 ML 500 ML 20 ML IV (09:50)
[2025-04-13] MEDS: BENZOCAINE 20% (Hurricaine) SPRAY 1 DOSE TOP (09:50)
[2025-04-13] MEDS: MIDAZOLAM INJ 1 MG/ML VIAL 2 ML (ASD USE ONLY) 2 MG IVP ×2 (09:55→10:10)
[2025-04-13] MEDS: fentaNYL CIT INJ 50 mCg/ML AMP 2ML (ASD USE ONLY) IVP ×2 (09:55→10:11)
== END 2025-04-13 11:05 | disposition home or self-care (01) ==
PROVIDERS: PCP Physician Assistant; Referring Provider Specialist; Visit Provider Specialist
PROC: 0DBE8ZX Excision of Large Intestine, Via Natural or Artificial Opening Endoscopic, Diagnostic (ICD-10-PCS; CPT 45380; principal; 2025-04-13 10:30)
PROC: (CPT 43239; 2025-04-13 10:30)
DX: K64.9 Unspecified hemorrhoids (principal); K92.1 Melena; J84.10 Pulmonary fibrosis, unspecified
CPT/HCPCS: 45378; A4649; J1200; J2250; J3010; J7999; A9270